=== PATIENT | male | born 1970 | race Caucasian/White ===

== ENCOUNTER 2016-09-03 09:01 | Inpatient (IN) | payer OTHER ==
[2016-09-03] VITALS (8 sets, daily range): BP systolic 145–175; BP diastolic 82–113; PULSE 71–84; RESP 12–20; TEMP 97.6–98.2; O2SAT 97–100
[~2016-09-03] VITALS: Ht 182.9 cm; Wt 117.0 kg
[2016-09-03] MEDS ORDERED: DIPHTH/TETANUS/ACEL PERTUSSIS (BOOSTER) 0.5 ML VIAL/PFS IM ONE (09:03)
[2016-09-03] MEDS ORDERED: HYDROmorphone HCL PF 1 MG/ML VIAL ONE (09:06)
[2016-09-03] MEDS ORDERED: ONDANSETRON HCL 4 MG/2 ML VIAL ONE (09:06)
[2016-09-03 09:23] LABS: I-STAT POTASSIUM 3.7 MMOL/L (3.5-4.9); I-STAT SODIUM 143 MMOL/L (138-146)
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
[2016-09-03 09:26] LABS: AUTOMATED NEUTROPHIL # 4.3 TH/MM3 (1.8-7.7); BASOPHIL % 0.4 % (0.0-2.0); EOSINOPHIL # 0.2 TH/MM3 (0-0.4); EOSINOPHIL % 3.1 % (0.0-4.0); HEMATOCRIT 44.8 % (39.0-51.0); HEMO FLAGS DIFF FINAL; LYMPH % 30.1 % (9.0-44.0); LYMPHOCYTE # 2.2 TH/MM3 (1.0-4.8); MEAN CELL VOLUME 86.9 FL (80.0-100.0); MEAN CORPUSCULAR HEMOGLOBIN 29.4 PG (27.0-34.0); MEAN CORPUSCULAR HGB CONC 33.8 % (32.0-36.0); MONO % 7.8 % (0.0-8.0); NEUT % 58.6 % (16.0-70.0); PLATELET COUNT 240 TH/MM3 (150-450); RED BLOOD COUNT 5.16 MIL/MM3 (4.50-5.90); RED CELL DISTRIBUTION WIDTH 13.2 % (11.6-17.2); WHITE BLOOD COUNT 7.4 TH/MM3 (4.0-11.0)
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
[2016-09-03] MEDS ORDERED: IOHEXOL 350 MG/ML 10 ML VIAL (for RAD DIAG) IV ONE (09:31)
[2016-09-03 09:34] LABS: APTT (PATIENT) 24.5 SEC (24.3-30.1); PROTHROMBIN TIME - PATIENT 11.4 SEC (9.8-11.6)
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
[2016-09-03] MEDS ORDERED: SODIUM CHLORIDE 0.9% FLUSH 10 ML FLUSH IV FLUSH PRN (10:00)
[2016-09-03] MEDS: SODIUM CHLORIDE 0.9% FLUSH 10 ML FLUSH IV FLUSH SCH ×2 (10:00→20:25)
[2016-09-03] MEDS ORDERED: NALOXONE HCL 0.4 MG/ML AMP IV PRN (10:00)
[2016-09-03] MEDS: LACTULOSE SYRUP 20 GM/30 ML CUP PO SCH (10:00)
[2016-09-03] MEDS: PCA - TOTAL MG DILAUDID DELIVERED PER SHIFT OTHER SCH ×3 (10:00→22:00)
[2016-09-03] MEDS ORDERED: CHLORHEXIDINE GLUCONATE 2 % 1 PACK (2 CLOTHS) TOP PRN (10:00)
[2016-09-03] MEDS ORDERED: MISCELLANEOUS NURSING INFORMATION XX SCH (10:00)
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
[2016-09-03] MEDS: SODIUM CHLOR 0.9% 1000 ML INJ 1,000 ML IV SCH ×2 (10:27→18:28)
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
[2016-09-03] MEDS: HYDROmorphone HCL PCA 6 MG/30 ML IV SCH (11:02)
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
[2016-09-03] MEDS: ENOXAPARIN SODIUM 30 MG/0.3 ML SYRINGE SQ SCH (15:10)
[2016-09-04] VITALS (12 sets, daily range): BP systolic 129–152; BP diastolic 75–87; PULSE 69–88; RESP 9–22; TEMP 97.7–98.1; O2SAT 91–100
[2016-09-04] MEDS: ENOXAPARIN SODIUM 30 MG/0.3 ML SYRINGE SQ SCH (02:00)
[2016-09-04] MEDS: SODIUM CHLOR 0.9% 1000 ML INJ 1,000 ML IV SCH (02:30)
[2016-09-04] MEDS: CHLORHEXIDINE GLUCONATE 2 % 1 PACK (2 CLOTHS) TOP SCH (03:50)
[2016-09-04 04:38] LABS: AUTOMATED NEUTROPHIL # 4.9 TH/MM3 (1.8-7.7); BASOPHIL % 0.2 % (0.0-2.0); EOSINOPHIL # 0.1 TH/MM3 (0-0.4); EOSINOPHIL % 1.5 % (0.0-4.0); HEMATOCRIT 39.6 % (39.0-51.0); HEMO FLAGS DIFF FINAL; LYMPH % 20.4 % (9.0-44.0); LYMPHOCYTE # 1.5 TH/MM3 (1.0-4.8); MEAN CELL VOLUME 87.7 FL (80.0-100.0); MEAN CORPUSCULAR HEMOGLOBIN 30.3 PG (27.0-34.0); MEAN CORPUSCULAR HGB CONC 34.5 % (32.0-36.0); MONO % 11.4 % (0.0-8.0); NEUT % 66.5 % (16.0-70.0); PLATELET COUNT 178 TH/MM3 (150-450); RED BLOOD COUNT 4.51 MIL/MM3 (4.50-5.90); WHITE BLOOD COUNT 7.3 TH/MM3 (4.0-11.0)
[2016-09-04 04:54] LABS: BICARBONATE 27.1 MEQ/L (21.0-32.0); POTASSIUM 3.7 MEQ/L (3.5-5.1)
[2016-09-04] MEDS: PCA - TOTAL MG DILAUDID DELIVERED PER SHIFT OTHER SCH ×2 (05:34→22:00)
[2016-09-04] MEDS: HYDROmorphone HCL PCA 6 MG/30 ML IV SCH ×2 (06:11→18:15)
[2016-09-04] MEDS: LACTULOSE SYRUP 20 GM/30 ML CUP PO SCH (09:00)
[2016-09-04] MEDS: FAMOTIDINE 20 MG TAB PO SCH ×2 (09:00→22:15)
[2016-09-04] MEDS: SODIUM CHLORIDE 0.9% FLUSH 10 ML FLUSH IV FLUSH SCH ×2 (09:00→21:00)
[2016-09-04] MEDS: DOCUSATE SODIUM 100 MG CAP PO SCH ×2 (09:00→22:15)
[2016-09-04] MEDS ORDERED: GENTAMICIN SULFATE 80 MG/2 ML VIAL ONE (09:23)
[2016-09-04] MEDS ORDERED: VANCOMYCIN HCL 1000 MG VIAL ONE (09:23)
[2016-09-04] MEDS ORDERED: SODIUM CHLOR 0.9% 250 ML INJ 250 ML ONE (09:23)
[2016-09-04] MEDS ORDERED: DEXAMETHASONE SOD PHOS 4 MG/ML VIAL ONE (09:49)
[2016-09-04] MEDS ORDERED: MIDAZOLAM HCL 5 MG/5 ML VIAL ONE (09:49)
[2016-09-04] MEDS ORDERED: METOCLOPRAMIDE HCL 10 MG/2 ML VIAL ONE (09:50)
[2016-09-04] MEDS ORDERED: FAMOTIDINE 20 MG/2 ML VIAL ONE (09:50)
[2016-09-04] MEDS ORDERED: SODIUM CHLORIDE 0.9% IV SCH (10:00)
[2016-09-04] MEDS ORDERED: TRANEXAMIC ACID IV SCH (10:00)
[2016-09-04] MEDS ORDERED: ceFAZolin INJ 1,000 MG VIAL IV ONE (10:42)
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
--- NOTE | 2016-09-04 12:07 | PD.OP ---
cc: Homer Vogel MD Operative Report Date of Surgery: Sep 04, 2016 Preoperative Diagnosis: Pubic symphysis disruption Postoperative Diagnosis: Same Procedure: Open reduction internal fixation pubic symphysis Anesthesia: Gen. Surgeon: Homer Vogel Ends Down Checker(s): CHELY Fournier PA-C The surgical procedure was assisted by my physician operational assistant. My P.A. presence was necessary throughout this case for the manipulation and positioning of the surgical extremity. My P.A. was assisting me throughout the duration of this procedure. The skill set of a physician operational assistant was medically necessary to complete this procedure. During the surgical case the director surgical was working at the back table and the physician operational assistant was directly assisting me. Operation and Findings: Plan of activity: Toe-touch weightbearing for transfers Patient was seen and evaluated preoperatively. Informed consent was obtained after detailed discussion of risk and benefits of surgery. The operative site was marked. Patient was brought to the OR and placed on the OR table. IV sedation and general endotracheal anesthesia were administered. The pelvic region was prepped with alcohol followed by Hibiclens and draped in the usual sterile fashion. A timeout procedure was performed. IV antibiotics were given prior to incision. The procedure began with a five-inch Pfannenstiel incision over the lower abdomen. The subcutaneous tissue was dissected with Bovie. The linea alba was split in line with fibers. The bladder was identified. The bladder was protected throughout the procedure. At this point the pubic symphysis was identified. There was disruption of the pubic symphysis. A 3.5 screw was placed on each side of the pubic symphysis. A 3.5 reduction clamp was now used to reduce the symphysis. Fluoroscopy confirmed excellent alignment of the pelvic ring. A six-hole Synthes plate was selected. The plate was provisionally held to bone with K-wires. 3.5 cortical screws were used to compress plate to bone. Three screws were placed on each side of the pubic symphysis. All screws were pre-drilled and pre-measured for appropriate length. Final fluoroscopy revealed well-aligned fracture with well-placed hardware. The previously placed clamp and screws were removed. Next attention was turned to closure. A TRISTA drain was placed deep in the wound. Fascial layer was closed with #1 Vicryl. Subcutaneous tissues closed with 3- 0 Vicryl. Skin was closed with elaina. Sterile dressings were applied. Needle and sponge counts were correct. Homer Vogel MD Sep 04, 2016 12:07
[2016-09-04] MEDS ORDERED: MORPHINE SULFATE 4 MG/ML INJ IV PUSH PRN (12:15)
[2016-09-04] MEDS ORDERED: DO NOT ADM ANY ANTICOAGULANT DRUGS PRN (12:20)
[2016-09-04] MEDS: LACTATED RINGER'S 1000 ML INJ 1,000 ML IV SCH ×2 (13:00→23:00)
--- NOTE | 2016-09-04 14:33 | RADRPT ---
EXAM DATE/TIME: 09/04/2016 11:46 [facility] COMPARISON: No previous studies available for comparison. INDICATIONS : ORIF pubic symphysis. MEDICAL HISTORY : None. SURGICAL HISTORY : None. ENCOUNTER: Subsequent ACUITY: 2 days PAIN SCORE: Non-responsive. LOCATION: Pubic symphysis. FINDINGS/CONCLUSION: Five-view pelvis demonstrates a malleable plate across the suprapubic rami b oth left and right fixated with screws. The alignment is now anatomic. There is no complication. Dallin Adames MD on September 04, 2016 at 14:20 Board Certified Radiologist. This report was verified electronically.
[2016-09-04] MEDS ORDERED: PROPOFOL 200 MG/20 ML AMP IV ONE (14:53)
[2016-09-04] MEDS ORDERED: LACTATED RINGER'S 1000 ML INJ 1,000 ML IV ONE (14:54)
[2016-09-04] MEDS ORDERED: ONDANSETRON HCL 4 MG/2 ML VIAL IV PUSH ONE (14:54)
[2016-09-04] MEDS: ceFAZolin 2 GM PREMIX 50 ML IV SCH (17:24)
--- NOTE | 2016-09-04 19:44 | HHI.CCPN ---
Subjective 24 Hour Review/Hospital Course 09/04-Unstable pelvic fx no other injuries in the OR for repair of pelvic injury Objective Vital Signs Date Time Temp Pulse Resp B/P Pulse Ox O2 Delivery O2 Flow Rate FiO2 09/04/16 19:35 98 Nasal Cannula 2.00 09/04/16 18:15 13 09/04/16 18:00 80 09/04/16 16:00 97.9 135/81 09/04/16 08:00 98 Intake and Output 09/03/16 09/03/16 09/04/16 08:00 16:00 00:00 Intake Total 966 ml 885 ml Output Total 1250 ml 350 ml Balance -284 ml 535 ml Result Diagram: 09/04/16 0326 09/04/16 0326 Imaging Last 24 hours Impressions Pelvis X-Ray 09/04/16 0000 Signed Impressions: Service Date/Time: August 11:46 - CONCLUSION: Five-view pelvis demonstrates a malleable plate across the suprapubic rami both left and right fixated with screws. The alignment is now anatomic. There is no complication. Dallin Adames MD Assessment and Plan Plan Stable from general trauma standpoint transfer floor postop Desi Bautista MD Sep 04, 2016 19:44
[2016-09-04] MEDS: MAGNESIUM HYDROXIDE SUSP 30 ML CUP PO SCH (22:15)
[2016-09-04] MEDS: VANCOMYCIN INJ 1,000 MG in SODIUM CHLOR 0.9% 250 ML INJ 250 ML IV SCH (22:16)
[2016-09-05] VITALS (10 sets, daily range): BP systolic 140–162; BP diastolic 76–96; PULSE 73–98; RESP 13–22; TEMP 96.5–98.8; O2SAT 94–98
[2016-09-05] MEDS: ceFAZolin 2 GM PREMIX 50 ML IV SCH ×3 (01:45→18:09)
[2016-09-05] MEDS: CHLORHEXIDINE GLUCONATE 2 % 1 PACK (2 CLOTHS) TOP SCH ×2 (04:00→20:36)
[2016-09-05] MEDS: HYDROmorphone HCL PCA 6 MG/30 ML IV SCH ×2 (04:24→21:07)
[2016-09-05 04:42] LABS: AUTOMATED NEUTROPHIL # 6.2 TH/MM3 (1.8-7.7); BASOPHIL % 0.3 % (0.0-2.0); EOSINOPHIL % 0.4 % (0.0-4.0); HEMATOCRIT 37.5 % (39.0-51.0); HEMO FLAGS DIFF FINAL; LYMPH % 15.4 % (9.0-44.0); LYMPHOCYTE # 1.3 TH/MM3 (1.0-4.8); MEAN CELL VOLUME 88.5 FL (80.0-100.0); MEAN CORPUSCULAR HEMOGLOBIN 29.7 PG (27.0-34.0); MEAN CORPUSCULAR HGB CONC 33.6 % (32.0-36.0); MONO % 11.2 % (0.0-8.0); NEUT % 72.7 % (16.0-70.0); PLATELET COUNT 160 TH/MM3 (150-450); RED BLOOD COUNT 4.24 MIL/MM3 (4.50-5.90); RED CELL DISTRIBUTION WIDTH 12.9 % (11.6-17.2); WHITE BLOOD COUNT 8.5 TH/MM3 (4.0-11.0)
[2016-09-05 05:00] LABS: ALKALINE PHOSPHATASE 67 U/L (45-117); ALT (GPT) 25 U/L (12-78); ANION GAP 5 MEQ/L (5-15); AST (GOT) 29 U/L (15-37); BICARBONATE 29.9 MEQ/L (21.0-32.0); BLOOD UREA NITROGEN 9 MG/DL (7-18); CHLORIDE 103 MEQ/L (98-107); GLOMERULAR FILTRATION RATE 98 ML/MIN (>89); MAGNESIUM 1.8 MG/DL (1.5-2.5); POTASSIUM 3.7 MEQ/L (3.5-5.1); SODIUM (NA) 138 MEQ/L (136-145); TOTAL BILIRUBIN ADULT 0.5 MG/DL (0.2-1.0)
[2016-09-05] MEDS: PCA - TOTAL MG DILAUDID DELIVERED PER SHIFT OTHER SCH ×3 (06:00→22:00)
[2016-09-05] MEDS ORDERED: HYDR-3366 PO (07:10)
--- NOTE | 2016-09-05 07:52 | PD.ORT.PN ---
Subjective Subjective Remarks POD 1 s/p ORIF pubic symphysis doing well. pain controlled. no complaints. Objective Vitals Vital Signs Date Time Temp Pulse Resp B/P Pulse Ox O2 Delivery O2 Flow Rate FiO2 09/05/16 06:00 73 09/05/16 06:00 14 09/05/16 04:24 13 09/05/16 04:00 97.9 87 16 162/87 94 09/05/16 04:00 98 09/05/16 02:00 78 09/05/16 00:00 97.8 80 22 140/80 96 09/05/16 00:00 80 09/04/16 22:00 74 09/04/16 22:00 22 09/04/16 20:00 86 09/04/16 20:00 98.0 86 22 134/75 94 09/04/16 19:35 98 Nasal Cannula 2.00 09/04/16 19:00 99 Nasal Cannula 2.00 09/04/16 18:15 13 09/04/16 18:00 80 09/04/16 16:00 97.9 86 14 135/81 91 09/04/16 16:00 86 09/04/16 14:00 88 09/04/16 14:00 97.8 88 16 137/75 100 09/04/16 13:58 94 Nasal Cannula 2.00 09/04/16 13:25 95.1 86 20 142/78 99 Nasal Cannula 3 09/04/16 13:15 86 20 142/78 99 Nasal Cannula 3 09/04/16 13:00 79 20 146/83 99 T-Piece 8 09/04/16 12:45 80 20 143/73 98 T-Piece 8 09/04/16 12:30 82 20 119/76 98 T-Piece 8 09/04/16 12:25 98.3 85 20 143/75 98 T-Piece 8 09/04/16 08:00 Mechanical Ventilator 2.00 98 09/04/16 08:00 97.7 69 12 129/76 94 09/04/16 08:00 71 I/O 09/04/16 09/04/16 09/04/16 09/05/16 09/05/16 09/05/16 07:00 15:00 23:00 07:00 15:00 23:00 Intake Total 878 ml 1050 ml 1934 ml 1095 ml Output Total 480 ml 600 ml 930 ml 305 ml Balance 398 ml 450 ml 1004 ml 790 ml Intake Oral 420 ml 240 ml IV Total 878 ml 50 ml 1514 ml 855 ml Other 1000 ml Output Urine Total 480 ml 500 ml 900 ml 300 ml Drainage Total 30 ml 5 ml Estimated Blood Loss 100 ml # Bowel Movements 0 0 Result Diagram: 09/05/1633109/05/16331 Objective Remarks Pelvis: dressings clean and dry. +drain. NVI distally bilaterally. Assessment & Plan Assessment and Plan 1) Pelvic Diastasis s/p ORIF pubic symphysis - POD 1 -NWB BLE -daily dressing changes of pelvis POD 2 -plan for DC of drain with dressing changes -CM for rehab vs home with [facility] -work on transfers -ok per ortho for DC home with [facility] of doing well with transfers and stable -scripts on chart -f/u with [facility] or [facility] in 2 weeks Richard Hernandez Sep 05, 2016 07:52
[2016-09-05] MEDS ORDERED: XARE10TA PO (07:53)
[2016-09-05] MEDS ORDERED: WHEEMIS3 (07:53)
--- NOTE | 2016-09-05 08:19 | HHI.FF ---
Face to Face Verification Diagnosis: (1) Pelvic fracture Physical Therapy Transfer training, bed to chair, Wheelchair training Right LE Weight Bearing: Non WB Left LE Weight Bearing: Non WB Nursing Dressing Changes: Daily dressing change, Xeroform, Coverderm/Primapore I have seen patient Mango Holcomb on 09/05/16. My clinical findings support the need for the requested home health care services because: Ltd mobility - disease progression I certify that my clinical findings support that this patient is homebound because: Post-op weakness Richard Hernandez Sep 05, 2016 08:19
[2016-09-05] MEDS: DOCUSATE SODIUM 100 MG CAP PO SCH ×2 (08:55→20:35)
[2016-09-05] MEDS: FAMOTIDINE 20 MG TAB PO SCH ×2 (08:55→20:35)
[2016-09-05] MEDS: SODIUM CHLORIDE 0.9% FLUSH 10 ML FLUSH IV FLUSH SCH ×2 (08:55→20:36)
[2016-09-05] MEDS: LACTULOSE SYRUP 20 GM/30 ML CUP PO SCH ×2 (08:55→18:09)
[2016-09-05] MEDS: VANCOMYCIN INJ 1,000 MG in SODIUM CHLOR 0.9% 250 ML INJ 250 ML IV SCH ×2 (08:55→20:36)
[2016-09-05] MEDS: LACTATED RINGER'S 1000 ML INJ 1,000 ML IV SCH ×3 (08:56→20:37)
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
[2016-09-05] MEDS ORDERED: hydrALAZINE HCL 25 MG TAB PO PRN (10:00)
[2016-09-05] MEDS: ONDANSETRON HCL 4 MG/2 ML VIAL IV PUSH PRN ×2 (10:33→20:39)
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
[2016-09-05] MEDS ORDERED: DOCU1CAP39 PO (11:21)
[2016-09-05] MEDS ORDERED: MILKSUS PO (11:21)
[2016-09-05] MEDS: ENOXAPARIN SODIUM 30 MG/0.3 ML SYRINGE SQ SCH ×2 (12:24→21:03)
[2016-09-05] MEDS ORDERED: NAPROXEN 250 MG TAB PO PRN (17:45)
[2016-09-05] MEDS: MAGNESIUM HYDROXIDE SUSP 30 ML CUP PO SCH (20:35)
[2016-09-06] VITALS (8 sets, daily range): BP systolic 145–158; BP diastolic 82–94; PULSE 79–94; RESP 16–18; TEMP 97.2–98.4; O2SAT 92–99
[2016-09-06] MEDS: ceFAZolin 2 GM PREMIX 50 ML IV SCH ×2 (02:39→10:51)
[2016-09-06] MEDS: LACTULOSE SYRUP 20 GM/30 ML CUP PO SCH (05:47)
[2016-09-06] MEDS: ACETAMINOPHEN/HYDROcodone 325 MG/10 MG TAB PO PRN ×4 (05:47→22:09)
[2016-09-06] MEDS: PCA - TOTAL MG DILAUDID DELIVERED PER SHIFT OTHER SCH (06:00)
[2016-09-06] MEDS ORDERED: BISACODYL 10 MG SUPP RECTAL ONE (07:15)
[2016-09-06] MEDS ORDERED: BISACODYL EC 5 MG TABEC PO ONE (07:15)
[2016-09-06] MEDS ORDERED: BEDSIDE COMMODE1 MI1 (07:18)
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
[2016-09-06] MEDS: POLYETHYLENE GLYCOL 17 GM PKG PO SCH (08:15)
[2016-09-06] MEDS: DOCUSATE SODIUM 100 MG CAP PO SCH ×2 (08:15→21:00)
[2016-09-06] MEDS ORDERED: ENOX30P SQ (10:18)
[2016-09-06] MEDS ORDERED: FAMO20TA2 PO (10:18)
[2016-09-06] MEDS: FAMOTIDINE 20 MG TAB PO SCH ×2 (10:50→22:09)
[2016-09-06] MEDS: ENOXAPARIN SODIUM 30 MG/0.3 ML SYRINGE SQ SCH ×2 (10:51→22:10)
[2016-09-06] MEDS: SODIUM CHLORIDE 0.9% FLUSH 10 ML FLUSH IV FLUSH SCH ×2 (10:52→22:10)
[2016-09-06] MEDS: VANCOMYCIN INJ 1,000 MG in SODIUM CHLOR 0.9% 250 ML INJ 250 ML IV SCH (10:52)
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
[2016-09-06] MEDS: MAGNESIUM HYDROXIDE SUSP 30 ML CUP PO SCH (21:00)
[2016-09-07] VITALS: BP 127/66; PULSE 87; RESP 16; TEMP 98; O2SAT 96
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
[2016-09-07] MEDS: ACETAMINOPHEN/HYDROcodone 325 MG/10 MG TAB PO PRN ×4 (08:25→22:30)
[2016-09-07] MEDS: FAMOTIDINE 20 MG TAB PO SCH ×2 (08:26→22:29)
[2016-09-07] MEDS: LACTULOSE SYRUP 20 GM/30 ML CUP PO SCH (08:26)
[2016-09-07] MEDS: DOCUSATE SODIUM 100 MG CAP PO SCH ×2 (08:26→21:00)
[2016-09-07] MEDS: POLYETHYLENE GLYCOL 17 GM PKG PO SCH (08:26)
[2016-09-07] MEDS: SODIUM CHLORIDE 0.9% FLUSH 10 ML FLUSH IV FLUSH SCH ×2 (08:27→21:00)
[2016-09-07 08:57] VITALS: BP 157/94; PULSE 84; RESP 17; TEMP 98.4; O2SAT 96
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
[2016-09-07 11:37] VITALS: BP 159/90; PULSE 91; RESP 18; TEMP 97.4; O2SAT 97
[2016-09-07] MEDS: ENOXAPARIN SODIUM 30 MG/0.3 ML SYRINGE SQ SCH ×2 (12:00→22:29)
[2016-09-07 16:05] VITALS: BP 147/84; PULSE 88; RESP 18; TEMP 98.3; O2SAT 94
[2016-09-07] MEDS: MAGNESIUM HYDROXIDE SUSP 30 ML CUP PO SCH (21:00)
[2016-09-07 21:35] VITALS: BP 149/84; PULSE 81; RESP 16; TEMP 99.3; O2SAT 98
[2016-09-07 21:42] VITALS: O2SAT 97
[2016-09-08 01:30] VITALS: BP 150/82; PULSE 78; RESP 16; TEMP 97.4; O2SAT 97
[2016-09-08 07:22] LABS: AUTOMATED NEUTROPHIL # 3.3 TH/MM3 (1.8-7.7); BASOPHIL % 0.6 % (0.0-2.0); EOSINOPHIL # 0.2 TH/MM3 (0-0.4); EOSINOPHIL % 4.4 % (0.0-4.0); HEMATOCRIT 35.3 % (39.0-51.0); HEMO FLAGS DIFF FINAL; LYMPH % 23.1 % (9.0-44.0); LYMPHOCYTE # 1.3 TH/MM3 (1.0-4.8); MEAN CELL VOLUME 87.9 FL (80.0-100.0); MEAN CORPUSCULAR HEMOGLOBIN 29.7 PG (27.0-34.0); MEAN CORPUSCULAR HGB CONC 33.8 % (32.0-36.0); MONO % 11.2 % (0.0-8.0); NEUT % 60.7 % (16.0-70.0); PLATELET COUNT 233 TH/MM3 (150-450); RED BLOOD COUNT 4.02 MIL/MM3 (4.50-5.90); WHITE BLOOD COUNT 5.4 TH/MM3 (4.0-11.0)
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
[2016-09-08 07:44] VITALS: BP 152/92; PULSE 82; RESP 18; TEMP 98.1; O2SAT 95
[2016-09-08 07:58] LABS: ALKALINE PHOSPHATASE 127 U/L (45-117); ALT (GPT) 61 U/L (12-78); ANION GAP 6 MEQ/L (5-15); AST (GOT) 57 U/L (15-37); BICARBONATE 31.8 MEQ/L (21.0-32.0); BLOOD UREA NITROGEN 11 MG/DL (7-18); CHLORIDE 103 MEQ/L (98-107); GLOMERULAR FILTRATION RATE 104 ML/MIN (>89); MAGNESIUM 2.2 MG/DL (1.5-2.5); POTASSIUM 3.9 MEQ/L (3.5-5.1); SODIUM (NA) 141 MEQ/L (136-145); TOTAL BILIRUBIN ADULT 0.8 MG/DL (0.2-1.0)
[2016-09-08] MEDS: LACTULOSE SYRUP 20 GM/30 ML CUP PO SCH (08:05)
[2016-09-08] MEDS: POLYETHYLENE GLYCOL 17 GM PKG PO SCH (08:05)
[2016-09-08] MEDS: DOCUSATE SODIUM 100 MG CAP PO SCH ×2 (08:06→21:00)
[2016-09-08] MEDS: FAMOTIDINE 20 MG TAB PO SCH ×2 (08:07→21:53)
[2016-09-08] MEDS: SODIUM CHLORIDE 0.9% FLUSH 10 ML FLUSH IV FLUSH SCH ×2 (08:07→21:00)
[2016-09-08] MEDS: ACETAMINOPHEN/HYDROcodone 325 MG/10 MG TAB PO PRN ×4 (08:07→21:55)
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
[2016-09-08] MEDS: ENOXAPARIN SODIUM 30 MG/0.3 ML SYRINGE SQ SCH ×2 (11:28→22:00)
[2016-09-08] MEDS ORDERED: HOSP BED2 (11:44)
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
[2016-09-08 12:00] VITALS: BP 154/93; PULSE 82; RESP 18; TEMP 98.7; O2SAT 97
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
[2016-09-08 15:43] VITALS: BP 156/83; PULSE 80; RESP 18; TEMP 98.7; O2SAT 98
[2016-09-08 19:00] VITALS: BP 159/80; PULSE 77; RESP 16; TEMP 98.1; O2SAT 97
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
[2016-09-08] MEDS: MAGNESIUM HYDROXIDE SUSP 30 ML CUP PO SCH (21:00)
[2016-09-09 00:27] VITALS: BP 126/73; PULSE 78; RESP 17; TEMP 98; O2SAT 99
[2016-09-09 04:00] VITALS: BP 138/78; PULSE 89; RESP 16; TEMP 97.5; O2SAT 97
[2016-09-09] MEDS: ACETAMINOPHEN/HYDROcodone 325 MG/10 MG TAB PO PRN ×4 (06:30→16:07)
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
[2016-09-09 07:34] VITALS: BP 143/88; PULSE 81; RESP 19; TEMP 96.6; O2SAT 97
[2016-09-09] MEDS: LACTULOSE SYRUP 20 GM/30 ML CUP PO SCH (09:00)
[2016-09-09] MEDS: DOCUSATE SODIUM 100 MG CAP PO SCH (09:00)
[2016-09-09] MEDS: SODIUM CHLORIDE 0.9% FLUSH 10 ML FLUSH IV FLUSH SCH (09:00)
[2016-09-09] MEDS: POLYETHYLENE GLYCOL 17 GM PKG PO SCH (09:00)
[2016-09-09] MEDS: FAMOTIDINE 20 MG TAB PO SCH (09:37)
[2016-09-09] MEDS: ENOXAPARIN SODIUM 30 MG/0.3 ML SYRINGE SQ SCH (09:37)
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
[2016-09-09 11:43] VITALS: BP 138/92; PULSE 82; RESP 19; TEMP 97.3; O2SAT 95
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
[2016-09-09 15:20] VITALS: BP 139/90; PULSE 77; RESP 16; TEMP 97.8
== END 2016-09-09 17:50 | disposition home health service (06) | DRG 517 ==
LOC: NEPI 09:01 → NEDA 09:19 → EDBD 09:19 → MERGE 09:19 → N03B 09:49 → N06B 09-05 11:01
PROVIDERS: ADMIT Hospitalist; ATTEND Hospitalist
PROC: 0QS304Z Reposition Left Pelvic Bone with Internal Fixation Device, Open Approach (ICD-10-PCS; principal; 2016-09-04 10:24)
DX: S32.592A Other specified fracture of left pubis, initial encounter for closed fracture (principal); E66.9 Obesity, unspecified; N50.89 Other specified disorders of the male genital organs; R03.0 Elevated blood-pressure reading, without diagnosis of hypertension; S01.81XA Laceration without foreign body of other part of head, initial encounter; F17.210 Nicotine dependence, cigarettes, uncomplicated; V23.9XXA Unspecified motorcycle rider injured in collision with car, pick-up truck or van in traffic accident, initial encounter; Z68.35 Body mass index [BMI] 35.0-35.9, adult
CPT/HCPCS: 70450; 71010; 71260; 72125; 72128; 72131; 72170; 72190; 73120; 74177; 76000; 80048; 80053; 80307; 82435; 82565; 82947; 83735; 84132; 84295; 84520; 85025; 85610; 85730; 86850; 86900; 86901; 87641; 90471; 90715; 94150; 96374; 96375; 99291; A0431-QM-SH; A0436-QM-SH; C1713; G0390; J0690; J1100; J1170; J1580; J1650; J2250; J2405; J2765; J3010; J3370; J7030; J7050; J7120; Q9967